=== PATIENT | male | born 1940 | race Caucasian/White ===

== ENCOUNTER 2020-09-20 14:59 | Inpatient (IN) ==
[2020-09-20] MEDS ORDERED: Ondansetron ODT 4 MG TAB.RAPDIS SL PRN (17:35)
[2020-09-20] MEDS ORDERED: *HR* Dextrose 50 % in Water (Vial) 50 ML VIAL IVP PRN (17:37)
[2020-09-20] MEDS ORDERED: Dextrose Gel 15 GM/37.5 ML TUBE PO PRN ×2 (17:37)
[2020-09-20] MEDS ORDERED: D5% in Water 1,000 ML IVC PRN (17:37)
[2020-09-20] MEDS ORDERED: Sennosides/Docusate Sodium TABLET PO SCH (21:00)
[2020-09-20] MEDS: Pregabalin 50 MG CAPSULE PO SCH (22:14)
[2020-09-20] MEDS: Apixaban 5 MG TABLET PO SCH (22:14)
[2020-09-20] MEDS: Insulin LISPRO 300 UNITS/3 ML VIAL SUBQ SCH (22:19)
[2020-09-21 06:41] LABS: Basophils % 0.3 %; Eosinophils # 0.1 K/mcL (0.0-0.6); Eosinophils % 0.8 %; Hematocrit 28.2 % (37.5-50.1); Hemoglobin 9.4 g/dL (12.9-16.9); Immature Granulocytes % 0.9 % (0-4); Lymphocytes # 0.4 K/mcL (0.6-4.6); Lymphocytes % 4.1 %; Mean Corpuscular HGB Conc 33.3 g/dL (31.6-35.5); Mean Corpuscular Hemoglobin 29.9 pg (28.0-33.3); Mean Corpuscular Volume 89.8 fL (83.0-100.0); Mean Platelet Volume 9.5 fL (9.4-12.4); Monocytes # 0.7 K/mcL (0.0-1.3); Monocytes % 8.5 %; Neutrophils # 7.5 K/mcL (1.6-8.9); Platelet Count 329 K/mcL (140-400); Red Blood Count 3.14 M/mcL (4.19-5.50); Red Cell Distribution Width 13.2 % (11.5-14.5); Segmented Neutrophils % 85.4 %; White Blood Count 8.7 K/mcL (4.3-11.1)
[2020-09-21 07:13] LABS: Calcium 8.8 mg/dL (8.6-10.3); Potassium 3.1 mEq/L (3.5-5.1)
[2020-09-21] MEDS ORDERED: *HR* Metformin 500 MG TABLET PO SCH ×2 (08:45→17:00)
[2020-09-21] MEDS: Insulin LISPRO 300 UNITS/3 ML VIAL SUBQ SCH ×4 (09:07→20:30)
[2020-09-21] MEDS: lisinopriL 20 MG TABLET PO SCH (09:08)
[2020-09-21] MEDS: Sennosides/Docusate Sodium TABLET PO SCH ×2 (09:09→20:29)
[2020-09-21] MEDS: Cholecalciferol (D-3) 1,000 UNIT (25MCG) TABLET PO SCH (09:09)
[2020-09-21] MEDS: Finasteride 5 MG TABLET PO SCH (09:09)
[2020-09-21] MEDS: NIFEdipine XL (24 HR) 30 MG TAB.ER.24 PO SCH (09:09)
[2020-09-21] MEDS: Apixaban 5 MG TABLET PO SCH ×2 (09:09→20:29)
[2020-09-21] MEDS: Aspirin Enteric Coated 81 MG Tablet PO SCH (09:10)
[2020-09-21] MEDS: GlipiZIDE 5 MG TABLET PO SCH ×2 (09:14→17:40)
[2020-09-21] MEDS ORDERED: Gadolinium Contrast Agent (WT Based) IV PRN (15:45)
[2020-09-21] MEDS ORDERED: Ringers Solution, Lactated 1,000 ML IVC ONE (16:16)
[2020-09-21] MEDS: Acetaminophen 325 MG TABLET PO PRN (20:29)
[2020-09-21] MEDS: Pregabalin 50 MG CAPSULE PO SCH (20:29)
[2020-09-22 08:10] LABS: Alanine Aminotransferase 25 Units/L (7-52); Albumin 2.7 g/dL (3.5-5.7); Albumin/Globulin Ratio 0.8 (1.1-2.2); Alkaline Phosphatase 66 Units/L (34-104); Aspartate Amino Transferase 38 Units/L (13-39); BUN/Creatinine Ratio 22 (6-26); Bilirubin,Total 0.4 mg/dL (0.3-1.0); Blood Urea Nitrogen 27 mg/dL (8-23); Calcium 8.5 mg/dL (8.6-10.3); Carbon Dioxide 22 mEq/L (23-29); Chloride 101 mEq/L (98-107); Globulin 3.5 g/dL (2.4-3.5); Glucose 93 mg/dL (70-105); Osmolality,Calculated 283 (280-300); Potassium 2.9 mEq/L (3.5-5.1); Sodium 134 mEq/L (136-145); Total Protein 6.2 g/dL (6.4-8.9); eGFR For African Americans > 60 (> 60); eGFR For Non-African Americans 57 (> 60)
[2020-09-22] MEDS: NIFEdipine XL (24 HR) 30 MG TAB.ER.24 PO SCH (09:37)
[2020-09-22] MEDS: Apixaban 5 MG TABLET PO SCH ×2 (09:39→21:08)
[2020-09-22] MEDS: Sennosides/Docusate Sodium TABLET PO SCH ×2 (09:39→21:10)
[2020-09-22] MEDS: Cholecalciferol (D-3) 1,000 UNIT (25MCG) TABLET PO SCH (09:39)
[2020-09-22] MEDS: Acetaminophen 325 MG TABLET PO PRN (09:40)
[2020-09-22] MEDS: GlipiZIDE 5 MG TABLET PO SCH ×2 (09:42→17:49)
[2020-09-22] MEDS: lisinopriL 20 MG TABLET PO SCH (09:42)
[2020-09-22] MEDS: Finasteride 5 MG TABLET PO SCH (09:42)
[2020-09-22] MEDS: Insulin LISPRO 300 UNITS/3 ML VIAL SUBQ SCH ×4 (09:43→21:11)
[2020-09-22] MEDS: Aspirin Enteric Coated 81 MG Tablet PO SCH (09:43)
[2020-09-22] MEDS: Pregabalin 50 MG CAPSULE PO SCH (21:10)
[2020-09-23] MEDS: Acetaminophen 325 MG TABLET PO PRN ×2 (06:11→15:03)
[2020-09-23 07:28] LABS: Basophils % 0.5 %; Eosinophils # 0.2 K/mcL (0.0-0.6); Eosinophils % 2.5 %; Hematocrit 25.5 % (37.5-50.1); Hemoglobin 8.7 g/dL (12.9-16.9); Immature Granulocytes % 1.3 % (0-4); Lymphocytes # 0.4 K/mcL (0.6-4.6); Lymphocytes % 5.9 %; Mean Corpuscular HGB Conc 34.1 g/dL (31.6-35.5); Mean Corpuscular Volume 87.9 fL (83.0-100.0); Mean Platelet Volume 9.5 fL (9.4-12.4); Monocytes # 0.5 K/mcL (0.0-1.3); Monocytes % 7.1 %; Neutrophils # 6.2 K/mcL (1.6-8.9); Platelet Count 366 K/mcL (140-400); Red Cell Distribution Width 13.1 % (11.5-14.5); Segmented Neutrophils % 82.7 %; White Blood Count 7.5 K/mcL (4.3-11.1)
[2020-09-23 07:46] LABS: Magnesium 1.2 mg/dL (1.6-2.6); Phosphorous 2.1 mg/dL (2.7-4.5)
[2020-09-23 07:47] LABS: Alanine Aminotransferase 40 Units/L (7-52); Albumin 2.7 g/dL (3.5-5.7); Albumin/Globulin Ratio 0.8 (1.1-2.2); Alkaline Phosphatase 73 Units/L (34-104); Aspartate Amino Transferase 56 Units/L (13-39); BUN/Creatinine Ratio 25 (6-26); Bilirubin,Total 0.4 mg/dL (0.3-1.0); Blood Urea Nitrogen 27 mg/dL (8-23); Calcium 8.2 mg/dL (8.6-10.3); Carbon Dioxide 21 mEq/L (23-29); Chloride 100 mEq/L (98-107); Globulin 3.5 g/dL (2.4-3.5); Glucose 160 mg/dL (70-105); Osmolality,Calculated 283 (280-300); Potassium 3.2 mEq/L (3.5-5.1); Sodium 132 mEq/L (136-145); Total Protein 6.2 g/dL (6.4-8.9); eGFR For African Americans > 60 (> 60); eGFR For Non-African Americans > 60 (> 60)
[2020-09-23] MEDS: Aspirin Enteric Coated 81 MG Tablet PO SCH (08:46)
[2020-09-23] MEDS: Sennosides/Docusate Sodium TABLET PO SCH ×2 (08:47→20:23)
[2020-09-23] MEDS: Cholecalciferol (D-3) 1,000 UNIT (25MCG) TABLET PO SCH (08:48)
[2020-09-23] MEDS: GlipiZIDE 5 MG TABLET PO SCH ×2 (08:48→15:03)
[2020-09-23] MEDS: lisinopriL 20 MG TABLET PO SCH (08:49)
[2020-09-23] MEDS: Finasteride 5 MG TABLET PO SCH (08:49)
[2020-09-23] MEDS: Apixaban 5 MG TABLET PO SCH ×2 (08:49→20:23)
[2020-09-23] MEDS: Insulin LISPRO 300 UNITS/3 ML VIAL SUBQ SCH ×4 (08:50→20:17)
[2020-09-23] MEDS: NIFEdipine XL (24 HR) 30 MG TAB.ER.24 PO SCH (08:56)
[2020-09-23] MEDS: Saline Nasal Spray 44 ML BOTTLE NS PRN (12:22)
[2020-09-23] MEDS: Pregabalin 50 MG CAPSULE PO SCH (20:22)
[2020-09-24] MEDS: Acetaminophen 325 MG TABLET PO PRN ×2 (04:08→11:57)
[2020-09-24] MEDS: GlipiZIDE 5 MG TABLET PO SCH ×2 (08:39→16:37)
[2020-09-24] MEDS: lisinopriL 20 MG TABLET PO SCH (08:39)
[2020-09-24] MEDS: Sennosides/Docusate Sodium TABLET PO SCH ×2 (08:39→20:21)
[2020-09-24] MEDS: NIFEdipine XL (24 HR) 30 MG TAB.ER.24 PO SCH (08:39)
[2020-09-24] MEDS: Finasteride 5 MG TABLET PO SCH (08:40)
[2020-09-24] MEDS: Insulin LISPRO 300 UNITS/3 ML VIAL SUBQ SCH ×4 (08:40→20:22)
[2020-09-24] MEDS: Apixaban 5 MG TABLET PO SCH ×2 (08:40→20:21)
[2020-09-24] MEDS: Aspirin Enteric Coated 81 MG Tablet PO SCH (08:40)
[2020-09-24] MEDS: Cholecalciferol (D-3) 1,000 UNIT (25MCG) TABLET PO SCH (08:40)
[2020-09-24] MEDS: Saline Nasal Spray 44 ML BOTTLE NS PRN ×2 (08:40→11:56)
[2020-09-24] MEDS: Pregabalin 50 MG CAPSULE PO SCH (20:21)
[2020-09-25] MEDS: Saline Nasal Spray 44 ML BOTTLE NS PRN (06:13)
[2020-09-25] MEDS: Insulin LISPRO 300 UNITS/3 ML VIAL SUBQ SCH ×4 (07:57→20:32)
[2020-09-25] MEDS: NIFEdipine XL (24 HR) 30 MG TAB.ER.24 PO SCH (09:59)
[2020-09-25] MEDS: GlipiZIDE 5 MG TABLET PO SCH ×2 (09:59→17:19)
[2020-09-25] MEDS: Sennosides/Docusate Sodium TABLET PO SCH ×2 (10:00→20:31)
[2020-09-25] MEDS: lisinopriL 20 MG TABLET PO SCH (10:00)
[2020-09-25] MEDS: Apixaban 5 MG TABLET PO SCH ×2 (10:00→20:30)
[2020-09-25] MEDS: Magnesium Oxide 400 MG TABLET PO SCH (10:00)
[2020-09-25] MEDS: Aspirin Enteric Coated 81 MG Tablet PO SCH (10:00)
[2020-09-25] MEDS: Finasteride 5 MG TABLET PO SCH (10:00)
[2020-09-25] MEDS: Cholecalciferol (D-3) 1,000 UNIT (25MCG) TABLET PO SCH (10:00)
[2020-09-25] MEDS: Pregabalin 50 MG CAPSULE PO SCH (20:31)
[2020-09-26] MEDS: Acetaminophen 325 MG TABLET PO PRN ×2 (04:50→22:29)
[2020-09-26] MEDS: Cholecalciferol (D-3) 1,000 UNIT (25MCG) TABLET PO SCH (08:54)
[2020-09-26] MEDS: Sennosides/Docusate Sodium TABLET PO SCH ×2 (08:54→22:28)
[2020-09-26] MEDS: NIFEdipine XL (24 HR) 30 MG TAB.ER.24 PO SCH (08:55)
[2020-09-26] MEDS: Magnesium Oxide 400 MG TABLET PO SCH (08:55)
[2020-09-26] MEDS: Finasteride 5 MG TABLET PO SCH (08:55)
[2020-09-26] MEDS: Apixaban 5 MG TABLET PO SCH ×2 (08:55→22:28)
[2020-09-26] MEDS: Aspirin Enteric Coated 81 MG Tablet PO SCH (08:55)
[2020-09-26] MEDS: Insulin LISPRO 300 UNITS/3 ML VIAL SUBQ SCH ×4 (08:56→21:53)
[2020-09-26] MEDS: GlipiZIDE 5 MG TABLET PO SCH ×2 (08:56→16:56)
[2020-09-26] MEDS: lisinopriL 20 MG TABLET PO SCH (08:56)
[2020-09-26 10:08] LABS: Basophils # 0.1 K/mcL (0.0-0.2); Basophils % 0.7 %; Eosinophils # 0.2 K/mcL (0.0-0.6); Eosinophils % 2.3 %; Hematocrit 26.1 % (37.5-50.1); Hemoglobin 8.9 g/dL (12.9-16.9); Immature Granulocytes % 2.5 % (0-4); Lymphocytes # 0.5 K/mcL (0.6-4.6); Lymphocytes % 4.9 %; Mean Corpuscular HGB Conc 34.1 g/dL (31.6-35.5); Mean Corpuscular Hemoglobin 30.3 pg (28.0-33.3); Mean Corpuscular Volume 88.8 fL (83.0-100.0); Mean Platelet Volume 9.6 fL (9.4-12.4); Monocytes # 0.6 K/mcL (0.0-1.3); Monocytes % 6.3 %; Neutrophils # 8.3 K/mcL (1.6-8.9); Platelet Count 452 K/mcL (140-400); Red Blood Count 2.94 M/mcL (4.19-5.50); Red Cell Distribution Width 13.2 % (11.5-14.5); Segmented Neutrophils % 83.3 %; White Blood Count 9.9 K/mcL (4.3-11.1)
[2020-09-26 10:21] LABS: Albumin 2.9 g/dL (3.5-5.7); Albumin/Globulin Ratio 0.8 (1.1-2.2); Bilirubin,Total 0.4 mg/dL (0.3-1.0); Calcium 8.8 mg/dL (8.6-10.3); Globulin 3.8 g/dL (2.4-3.5); Magnesium 1.2 mg/dL (1.6-2.6); Phosphorous 2.8 mg/dL (2.7-4.5); Potassium 3.3 mEq/L (3.5-5.1); Total Protein 6.7 g/dL (6.4-8.9)
[2020-09-26] MEDS: Pregabalin 50 MG CAPSULE PO SCH (22:29)
[2020-09-27] MEDS: Insulin LISPRO 300 UNITS/3 ML VIAL SUBQ SCH ×4 (07:32→21:54)
[2020-09-27 08:46] LABS: Alanine Aminotransferase 26 Units/L (7-52); Albumin/Globulin Ratio 0.8 (1.1-2.2); Alkaline Phosphatase 75 Units/L (34-104); Aspartate Amino Transferase 26 Units/L (13-39); BUN/Creatinine Ratio 17 (6-26); Bilirubin,Total 0.4 mg/dL (0.3-1.0); Blood Urea Nitrogen 22 mg/dL (8-23); Calcium 8.9 mg/dL (8.6-10.3); Carbon Dioxide 23 mEq/L (23-29); Chloride 100 mEq/L (98-107); Globulin 3.7 g/dL (2.4-3.5); Glucose 136 mg/dL (70-105); Magnesium 1.8 mg/dL (1.6-2.6); Osmolality,Calculated 283 (280-300); Potassium 3.7 mEq/L (3.5-5.1); Sodium 134 mEq/L (136-145); Total Protein 6.7 g/dL (6.4-8.9); eGFR For African Americans > 60 (> 60); eGFR For Non-African Americans 55 (> 60)
[2020-09-27] MEDS: lisinopriL 20 MG TABLET PO SCH (09:29)
[2020-09-27] MEDS: Apixaban 5 MG TABLET PO SCH ×2 (09:29→21:53)
[2020-09-27] MEDS: Finasteride 5 MG TABLET PO SCH (09:30)
[2020-09-27] MEDS: Magnesium Oxide 400 MG TABLET PO SCH (09:31)
[2020-09-27] MEDS: GlipiZIDE 5 MG TABLET PO SCH ×2 (09:31→16:05)
[2020-09-27] MEDS: Cholecalciferol (D-3) 1,000 UNIT (25MCG) TABLET PO SCH (09:31)
[2020-09-27] MEDS: Sennosides/Docusate Sodium TABLET PO SCH ×2 (09:32→21:52)
[2020-09-27] MEDS: NIFEdipine XL (24 HR) 30 MG TAB.ER.24 PO SCH (09:32)
[2020-09-27] MEDS: Aspirin Enteric Coated 81 MG Tablet PO SCH (09:33)
[2020-09-27] MEDS: Pregabalin 50 MG CAPSULE PO SCH (21:53)
[2020-09-28] MEDS: Insulin LISPRO 300 UNITS/3 ML VIAL SUBQ SCH ×4 (10:58→21:55)
[2020-09-28] MEDS: GlipiZIDE 5 MG TABLET PO SCH ×2 (11:09→18:03)
[2020-09-28] MEDS: Cholecalciferol (D-3) 1,000 UNIT (25MCG) TABLET PO SCH (11:09)
[2020-09-28] MEDS: Magnesium Oxide 400 MG TABLET PO SCH (11:10)
[2020-09-28] MEDS: NIFEdipine XL (24 HR) 30 MG TAB.ER.24 PO SCH (11:12)
[2020-09-28] MEDS: Sennosides/Docusate Sodium TABLET PO SCH ×2 (11:13→21:54)
[2020-09-28] MEDS: Aspirin Enteric Coated 81 MG Tablet PO SCH (11:13)
[2020-09-28] MEDS: Finasteride 5 MG TABLET PO SCH (11:13)
[2020-09-28] MEDS: lisinopriL 20 MG TABLET PO SCH (11:13)
[2020-09-28] MEDS: Apixaban 5 MG TABLET PO SCH ×2 (11:14→21:54)
[2020-09-28 11:15] LABS: Basophils # 0.1 K/mcL (0.0-0.2); Basophils % 0.5 %; Eosinophils # 0.2 K/mcL (0.0-0.6); Eosinophils % 1.6 %; Hematocrit 28.3 % (37.5-50.1); Hemoglobin 9.7 g/dL (12.9-16.9); Immature Granulocytes % 1.8 % (0-4); Lymphocytes # 0.6 K/mcL (0.6-4.6); Lymphocytes % 6.2 %; Mean Corpuscular HGB Conc 34.3 g/dL (31.6-35.5); Mean Corpuscular Hemoglobin 30.4 pg (28.0-33.3); Mean Corpuscular Volume 88.7 fL (83.0-100.0); Mean Platelet Volume 9.2 fL (9.4-12.4); Monocytes # 0.9 K/mcL (0.0-1.3); Monocytes % 8.3 %; Neutrophils # 8.4 K/mcL (1.6-8.9); Platelet Count 515 K/mcL (140-400); Red Blood Count 3.19 M/mcL (4.19-5.50); Red Cell Distribution Width 13.2 % (11.5-14.5); Segmented Neutrophils % 81.6 %; White Blood Count 10.3 K/mcL (4.3-11.1)
[2020-09-28] MEDS: Acetaminophen 325 MG TABLET PO PRN (11:23)
[2020-09-28 11:31] LABS: BUN/Creatinine Ratio 18 (6-26); Blood Urea Nitrogen 21 mg/dL (8-23); Carbon Dioxide 20 mEq/L (23-29); Chloride 97 mEq/L (98-107); Glucose 176 mg/dL (70-105); Osmolality,Calculated 281 (280-300); Potassium 3.3 mEq/L (3.5-5.1); Sodium 132 mEq/L (136-145); eGFR For African Americans > 60 (> 60); eGFR For Non-African Americans > 60 (> 60)
[2020-09-28] MEDS: Pregabalin 50 MG CAPSULE PO SCH (21:54)
[2020-09-28] MEDS: Saline Nasal Spray 44 ML BOTTLE NS PRN (22:01)
[2020-09-29] MEDS: Insulin LISPRO 300 UNITS/3 ML VIAL SUBQ SCH ×4 (08:16→20:11)
[2020-09-29] MEDS: Sennosides/Docusate Sodium TABLET PO SCH ×2 (08:17→20:10)
[2020-09-29] MEDS: Apixaban 5 MG TABLET PO SCH ×2 (08:17→20:09)
[2020-09-29] MEDS: lisinopriL 20 MG TABLET PO SCH (08:18)
[2020-09-29] MEDS: GlipiZIDE 5 MG TABLET PO SCH ×2 (08:19→16:36)
[2020-09-29] MEDS: Cholecalciferol (D-3) 1,000 UNIT (25MCG) TABLET PO SCH (08:19)
[2020-09-29] MEDS: Finasteride 5 MG TABLET PO SCH (08:19)
[2020-09-29] MEDS: Magnesium Oxide 400 MG TABLET PO SCH (08:19)
[2020-09-29] MEDS: NIFEdipine XL (24 HR) 30 MG TAB.ER.24 PO SCH (08:19)
[2020-09-29] MEDS: Aspirin Enteric Coated 81 MG Tablet PO SCH (08:20)
[2020-09-29] MEDS ORDERED: predniSONE 20 MG TABLET PO ONE (20:00)
[2020-09-29] MEDS: Pregabalin 50 MG CAPSULE PO SCH (20:10)
[2020-09-30] MEDS: GlipiZIDE 5 MG TABLET PO SCH ×2 (09:36→16:43)
[2020-09-30] MEDS: NIFEdipine XL (24 HR) 30 MG TAB.ER.24 PO SCH (09:36)
[2020-09-30] MEDS: Sennosides/Docusate Sodium TABLET PO SCH ×2 (09:36→20:48)
[2020-09-30] MEDS: Cholecalciferol (D-3) 1,000 UNIT (25MCG) TABLET PO SCH (09:37)
[2020-09-30] MEDS: Apixaban 5 MG TABLET PO SCH ×2 (09:37→20:49)
[2020-09-30] MEDS: Magnesium Oxide 400 MG TABLET PO SCH ×2 (09:37→12:35)
[2020-09-30] MEDS: Finasteride 5 MG TABLET PO SCH (09:37)
[2020-09-30] MEDS: Aspirin Enteric Coated 81 MG Tablet PO SCH (09:37)
[2020-09-30] MEDS: lisinopriL 20 MG TABLET PO SCH (09:37)
[2020-09-30] MEDS: Insulin LISPRO 300 UNITS/3 ML VIAL SUBQ SCH ×4 (09:42→21:19)
[2020-09-30 11:31] LABS: Alanine Aminotransferase 26 Units/L (7-52); Albumin 2.8 g/dL (3.5-5.7); Albumin/Globulin Ratio 0.8 (1.1-2.2); Alkaline Phosphatase 77 Units/L (34-104); Aspartate Amino Transferase 27 Units/L (13-39); BUN/Creatinine Ratio 20 (6-26); Bilirubin,Total 0.3 mg/dL (0.3-1.0); Blood Urea Nitrogen 26 mg/dL (8-23); Calcium 8.6 mg/dL (8.6-10.3); Carbon Dioxide 21 mEq/L (23-29); Chloride 100 mEq/L (98-107); Globulin 3.7 g/dL (2.4-3.5); Glucose 161 mg/dL (70-105); Osmolality,Calculated 286 (280-300); Potassium 3.4 mEq/L (3.5-5.1); Sodium 134 mEq/L (136-145); Total Protein 6.5 g/dL (6.4-8.9); eGFR For African Americans > 60 (> 60); eGFR For Non-African Americans 52 (> 60)
[2020-09-30] MEDS: predniSONE 10 MG TABLET PO SCH (12:35)
[2020-09-30] MEDS: Pregabalin 50 MG CAPSULE PO SCH (20:49)
[2020-10-01] MEDS: Insulin LISPRO 300 UNITS/3 ML VIAL SUBQ SCH ×4 (08:20→20:56)
[2020-10-01] MEDS: Aspirin Enteric Coated 81 MG Tablet PO SCH (08:24)
[2020-10-01] MEDS: NIFEdipine XL (24 HR) 30 MG TAB.ER.24 PO SCH (08:24)
[2020-10-01] MEDS: Apixaban 5 MG TABLET PO SCH ×2 (08:25→20:50)
[2020-10-01] MEDS: GlipiZIDE 5 MG TABLET PO SCH ×2 (08:25→17:02)
[2020-10-01] MEDS: predniSONE 10 MG TABLET PO SCH (08:25)
[2020-10-01] MEDS: Finasteride 5 MG TABLET PO SCH (08:25)
[2020-10-01] MEDS: lisinopriL 20 MG TABLET PO SCH (08:25)
[2020-10-01] MEDS: Cholecalciferol (D-3) 1,000 UNIT (25MCG) TABLET PO SCH (08:25)
[2020-10-01] MEDS: Magnesium Oxide 400 MG TABLET PO SCH (08:26)
[2020-10-01] MEDS: Sennosides/Docusate Sodium TABLET PO SCH ×2 (08:26→20:50)
[2020-10-01 15:24] LABS: ANA IgG by ELISA NONE DETECTED (None Detected)
[2020-10-01] MEDS: Pregabalin 50 MG CAPSULE PO SCH (20:49)
[2020-10-01] MEDS: Saline Nasal Spray 44 ML BOTTLE NS PRN (20:56)
[2020-10-02] MEDS: Insulin LISPRO 300 UNITS/3 ML VIAL SUBQ SCH ×4 (07:30→21:20)
[2020-10-02] MEDS: GlipiZIDE 5 MG TABLET PO SCH ×2 (09:22→17:11)
[2020-10-02] MEDS: Magnesium Oxide 400 MG TABLET PO SCH (09:23)
[2020-10-02] MEDS: lisinopriL 20 MG TABLET PO SCH (09:23)
[2020-10-02] MEDS: Aspirin Enteric Coated 81 MG Tablet PO SCH (09:23)
[2020-10-02] MEDS: NIFEdipine XL (24 HR) 30 MG TAB.ER.24 PO SCH (09:23)
[2020-10-02] MEDS: Cholecalciferol (D-3) 1,000 UNIT (25MCG) TABLET PO SCH (09:23)
[2020-10-02] MEDS: Apixaban 5 MG TABLET PO SCH ×2 (09:23→21:18)
[2020-10-02] MEDS: Finasteride 5 MG TABLET PO SCH (09:23)
[2020-10-02] MEDS: Sennosides/Docusate Sodium TABLET PO SCH ×2 (09:23→21:18)
[2020-10-02] MEDS: predniSONE 10 MG TABLET PO SCH (09:23)
[2020-10-02 12:26] LABS: Basophils # 0.1 K/mcL (0.0-0.2); Basophils % 0.6 %; Eosinophils # 0.2 K/mcL (0.0-0.6); Eosinophils % 2.9 %; Hematocrit 28.1 % (37.5-50.1); Hemoglobin 9.3 g/dL (12.9-16.9); Immature Granulocytes % 1.2 % (0-4); Lymphocytes # 0.4 K/mcL (0.6-4.6); Lymphocytes % 4.9 %; Mean Corpuscular HGB Conc 33.1 g/dL (31.6-35.5); Mean Corpuscular Hemoglobin 29.9 pg (28.0-33.3); Mean Corpuscular Volume 90.4 fL (83.0-100.0); Mean Platelet Volume 9.2 fL (9.4-12.4); Monocytes # 0.5 K/mcL (0.0-1.3); Monocytes % 5.8 %; Neutrophils # 7.1 K/mcL (1.6-8.9); Platelet Count 483 K/mcL (140-400); Red Blood Count 3.11 M/mcL (4.19-5.50); Red Cell Distribution Width 13.5 % (11.5-14.5); Segmented Neutrophils % 84.6 %; White Blood Count 8.4 K/mcL (4.3-11.1)
[2020-10-02 12:40] LABS: Calcium 9.1 mg/dL (8.6-10.3); Potassium 3.6 mEq/L (3.5-5.1)
[2020-10-02] MEDS: Saline Nasal Spray 44 ML BOTTLE NS PRN (21:19)
[2020-10-02] MEDS: Pregabalin 50 MG CAPSULE PO SCH (21:19)
[2020-10-03] MEDS: Insulin LISPRO 300 UNITS/3 ML VIAL SUBQ SCH ×4 (08:04→20:34)
[2020-10-03] MEDS: lisinopriL 20 MG TABLET PO SCH (09:50)
[2020-10-03] MEDS: NIFEdipine XL (24 HR) 30 MG TAB.ER.24 PO SCH (09:51)
[2020-10-03] MEDS: Cholecalciferol (D-3) 1,000 UNIT (25MCG) TABLET PO SCH (09:51)
[2020-10-03] MEDS: Sennosides/Docusate Sodium TABLET PO SCH ×2 (09:51→20:30)
[2020-10-03] MEDS: GlipiZIDE 5 MG TABLET PO SCH ×2 (09:51→18:33)
[2020-10-03] MEDS: predniSONE 10 MG TABLET PO SCH (09:51)
[2020-10-03] MEDS: Aspirin Enteric Coated 81 MG Tablet PO SCH (09:51)
[2020-10-03] MEDS: Apixaban 5 MG TABLET PO SCH ×2 (09:51→20:31)
[2020-10-03] MEDS: Finasteride 5 MG TABLET PO SCH (09:51)
[2020-10-03] MEDS: Magnesium Oxide 400 MG TABLET PO SCH (09:52)
[2020-10-03] MEDS: Pregabalin 50 MG CAPSULE PO SCH (20:31)
[2020-10-04 06:46] VITALS: BP 184/86
[2020-10-04] MEDS: Insulin LISPRO 300 UNITS/3 ML VIAL SUBQ SCH ×3 (07:22→17:48)
[2020-10-04] MEDS ORDERED: *HR* Pioglitazone 15 MG TABLET PO SCH (08:00)
[2020-10-04] MEDS ORDERED: predniSONE 5 MG TABLET PO SCH (09:00)
[2020-10-04] MEDS: NIFEdipine XL (24 HR) 30 MG TAB.ER.24 PO SCH (09:07)
[2020-10-04] MEDS: GlipiZIDE 5 MG TABLET PO SCH ×2 (09:08→17:47)
[2020-10-04] MEDS: Cholecalciferol (D-3) 1,000 UNIT (25MCG) TABLET PO SCH (09:08)
[2020-10-04] MEDS: Magnesium Oxide 400 MG TABLET PO SCH (09:08)
[2020-10-04] MEDS: lisinopriL 20 MG TABLET PO SCH (09:08)
[2020-10-04] MEDS: Apixaban 5 MG TABLET PO SCH (09:08)
[2020-10-04] MEDS: Finasteride 5 MG TABLET PO SCH (09:08)
[2020-10-04] MEDS: Aspirin Enteric Coated 81 MG Tablet PO SCH (09:08)
[2020-10-04] MEDS: Sennosides/Docusate Sodium TABLET PO SCH (09:13)
== END 2020-10-04 18:40 | disposition home health service (06) | DRG 560 ==
LOC: INPPIK 21:14
PROVIDERS: ADMIT Family Medicine; ATTEND Family Medicine